=== PATIENT | female | born 1960 | race Caucasian/White ===

== ENCOUNTER 2023-06-03 09:46 | Emergency (ER) | payer MEDICAID, OTHER ==
[~2023-06-03] VITALS: Ht 157.5 cm; Wt 74.8 kg
[2023-06-03] MEDS ORDERED: LISI10TA29 PO (10:11)
[2023-06-03] MEDS ORDERED: FAMO-132 PO (10:11)
[2023-06-03] MEDS ORDERED: BENZONATATE 100 MG CAPSULE PO ONE (10:30)
[2023-06-03] MEDS ORDERED: FAMOTIDINE 20 MG TABLET PO ONE (10:30)
[2023-06-03] MEDS ORDERED: BENZONATATE 100 MG CAPSULE ONE (10:30)
[2023-06-03] MEDS ORDERED: FAMOTIDINE 20 MG TABLET ONE (10:30)
[2023-06-03] MEDS ORDERED: HYDROCODONE/APAP 5-325MG TABLET PO ONE (10:30)
[2023-06-03] MEDS ORDERED: MAG HYDROX/AL HYDROX/SIMETH 30 ML LIQUID UDC ONE (10:30)
[2023-06-03] MEDS ORDERED: MAG HYDROX/AL HYDROX/SIMETH 30 ML LIQUID UDC PO ONE (10:30)
[2023-06-03] MEDS ORDERED: HYDROCODONE/APAP 5-325MG TABLET ONE (10:31)
[2023-06-03 10:48] LABS: BASOPHILS % (AUTO) 0.6 % (0.0-2.0); EOSINOPHILS # (AUTO) 0.1 K/uL (0.0-0.7); EOSINOPHILS % (AUTO) 1.9 % (0.0-7.0); HEMOGLOBIN 13.4 g/dL (10.9-14.3); LYMPHOCYTES # (AUTO) 2.1 K/uL (0.8-4.8); LYMPHOCYTES % (AUTO) 40.6 % (20.5-51.5); MEAN CORPUSCULAR HEMOGLOBIN 29.5 uug (24.7-32.8); MEAN CORPUSCULAR HGB CONC 34 g/dL (32.3-35.6); MEAN CORPUSCULAR VOLUME 87.8 fL (75.5-95.3); MONOCYTES # (AUTO) 0.5 K/uL (0.1-1.30); MONOCYTES % (AUTO) 9.2 % (0.0-11.0); NEUTROPHILS # (AUTO) 2.5 K/uL (1.8-8.9); NEUTROPHILS % (AUTO) 47.7 % (38.5-71.5); PLATELET COUNT (AUTO) 275 K/uL (179-408); RED BLOOD CELL COUNT(AUTO) 4.56 MIL/uL (3.63-4.92); RED CELL DISTRIBUTION WIDTH 12.8 % (12.3-17.7); WHITE BLOOD COUNT (AUTO) 5.3 K/uL (3.8-11.8)
[2023-06-03 10:58] LABS: CALCIUM 9.4 mg/dL (8.5-10.1); CREATININE 0.8 mg/dL (0.6-1.3); POTASSIUM 4.1 mmol/L (3.5-5.1)
[2023-06-03 10:59] LABS: DIFFERENTIAL COMMENT 1
[2023-06-03 11:10] LABS: ALBUMIN 3.2 g/dL (3.4-5.0); BILIRUBIN,TOTAL 0.5 mg/dL (0.2-1.0); TOTAL PROTEIN, SERUM 7.1 g/dL (6.4-8.2)
[2023-06-03] MEDS ORDERED: MAG355OR21 PO (11:26)
[2023-06-03] MEDS ORDERED: OMEP20TA5 PO (11:26)
[2023-06-03] MEDS ORDERED: BENZ-13 PO (11:27)
[2023-06-03 11:48] VITALS: BP 150/65; TEMP 98.2; O2SAT 99
== END 2023-06-03 11:49 | disposition home or self-care (01) ==
LOC: ER 09:46
DX: K21.00 Gastro-esophageal reflux disease with esophagitis, without bleeding (principal); R07.89 Other chest pain; Z91.041 Radiographic dye allergy status; Z79.899 Other long term (current) drug therapy
CPT/HCPCS: 36415; 71045; 83690; 84484; 85025; 93005; A4663